=== PATIENT | male | born 1995 | race Caucasian/White ===

== ENCOUNTER 2016-07-26 05:48 | Emergency (ER) ==
[2016-07-26 05:59] VITALS: BP 135/84
[2016-07-26] MEDS ORDERED: ZITHROMAX LIQUID PO ONE (06:30)
[2016-07-26] MEDS ORDERED: ORAPRED LIQUID PO ONE (06:31)
[2016-07-26] MEDS ORDERED: MOTRIN LIQUID PO ONE (06:31)
[2016-07-26] MEDS ORDERED: MBX SOLUTION MT ONE (06:31)
--- NOTE | 2016-07-26 06:37 | PROVIDER DOCUMENTATION ---
HPI-EENT General - General Chief Complaint: Sore Throat Stated Complaint: SWELLING OF THROAT Time Seen by Provider: 07/26/16 06:24 Source: patient Allergies/Adverse Reactions: Patient Allergies Allergy/AdvReac Type Severity Reaction Status Date / Time Penicillins Allergy ANAPHYLAXIS Verified 07/26/16 06:01 - History of Present Illness-EENT General Nature of Presenting Problem: pt states he started a slight slore throat yesterday however today it is much worse and he is having difficulty swallowing. No fevers. No runny nose or cough. Some pain radiates to his ears. He took some tylenol last night however this did not help much Review of Systems - Adult - REVIEW OF SYSTEMS - ADULT Constitutional: denies: chills, fever Eyes: denies: discharge Ears, Nose, Mouth & Throat: reports: ear pain, throat pain. denies: sinus problem, hoarseness Cardiovascular: denies: chest pain Respiratory: denies: cough Gastrointestinal: denies: abdominal pain, diarrhea, nausea, vomiting Genitourinary: denies: dysuria, frequency Musculoskeletal: denies: muscle aches Integumentary: denies: rash Neurological: denies: headache/migraines All Other Systems: Reviewed and Negative Past History - Adult - PAST MEDICAL HISTORY-ADULT Review of Records: reports: Old Records Reviewed, Nursing Assessment Review, Medications Reviewed, Social history reviewed & non-contributory. Major Childhood Illnesses: reports: denies history Cardiovascular: reports: denies history Respiratory: reports: denies history Gastrointestinal: reports: denies history Obstetrical/Gynecological: reports: denies history Genitourinary: reports: denies history Musculoskeletal: reports: denies history Neurological: reports: denies history Endocrine/Immune: reports: denies history Other Conditions: reports: denies history - PRIOR SURGERIES/PROCEDURES Surgical/Procedure History: reports: reviewed, not pertinent - IMMUNIZATION STATUS Childhood Immunizations: See Nurse Assessment Flu Vaccine: See Nurse Assessment - FAMILY HISTORY Family History: reviewed, not pertinent Physical Exam- EENT - Physical Exam EENT Initial Vital Signs Reviewed: Yes General Appearance: appears well, alert, no apparent distress Ear Exam: bilateral ear: TM normal Throat Exam: other (moderate tonsilar enlargement with erythema minimmal exudates) Neck: non-tender, full range of motion, supple, normal inspection, lymphadenopathy (moderate bilat) Respiratory: chest non-tender, lungs clear, normal breath sounds, no pleuratic chest pain, no respiratory distress, no accessory muscle use Integumentary: normal color, normal turgor, warm/dry Neurologic: grossly normal, no motor/sensory deficits Psych/Mental Status: normal mood/affect, normal thought content, normal thought process, oriented x 3 Progress - PLAN OF CARE/RESULTS Progress/Plan/Lab Results: Orders Category Date Time Status DIRECT STREP Stat Lab 07/26/16 05:58 Completed Azithromycin [Zithromax Liquid] Med 07/26/16 06:30 Discontinued 500 mg PO NOW ONE Diphenhyramine/Al&mg Oh/Lido [Mbx Solution] Med 07/26/16 06:31 Discontinued 15 ml MT NOW ONE Ibuprofen [Motrin Liquid] Med 07/26/16 06:31 Discontinued 800 mg PO NOW ONE Prednisolone Sod Phosphate [Orapred Liquid] Med 07/26/16 06:31 Discontinued 60 mg PO NOW ONE Vital Signs Temp Pulse Resp BP Pulse Ox 07/26/16 05:56 98.3 F 114 H 18 135/84 100 Penicillins Allergy (Verified 07/26/16 06:01) ANAPHYLAXIS Ibuprofen [Motrin] 800 mg PO Q8H PRN PRN #20 tablet 02/23/15 Methylprednisolone [Medrol Dosepak] 4 mg PO DIRECTED #1 package 02/23/15 Departure - Departure Time of Disposition Order: 06:37 DIAGNOSIS: Strep pharyngitis Disposition: HOME 01 Certified Medical Emergency: Emergent Condition: Fair Additional Instructions: ED Follow Up Instructions: You have been treated by a care provider in the Emergency Department. These instructions are being provided to you so you can have an understanding of how to care for yourself upon discharge. Upon discharge from the Emergency Department, you are responsible for making arrangements for follow-up care by a physician of your choice. Take all prescribed medications as directed. Return to the Emergency Department immediately for any new or worsening symptoms. You may call the Physician Referral phone number at [phone] to obtain a list of Physicians who are taking new patients. Prescriptions: Hydrocodone/Acetaminophen [Hydrocodone-Acetamin 2.5-108/5] 10 ml PO Q4HR PRN # 120 ml PRN Reason: Pain Diphenhyramine/Al&mg Oh/Lido [Mbx Solution] 15 ml MT Q3-4H PRN PRN #1 bottle PRN Reason: Pain Azithromycin [Zithromax] 250 mg PO DAILY #1 bottle
== END 2016-07-26 06:55 | disposition home or self-care (01) ==
LOC: ED 05:48
DX: J02.0 Streptococcal pharyngitis (principal); R13.10 Dysphagia, unspecified; H92.03 Otalgia, bilateral; J35.1 Hypertrophy of tonsils; R59.0 Localized enlarged lymph nodes
CPT/HCPCS: 87430; 99283; J7510